=== PATIENT | female | born 1960 | race Caucasian/White ===

== ENCOUNTER → 2023-04-20 08:23 | Outpatient (CLI) | payer BC, SELFPAY ==
--- NOTE | ~2023-04-20 | MR_ITS ---
EXAMINATION: MR brain/brain stem wo/w con DATE: 04/20/2023 09:18 INDICATION: Concussion with loss of consciousness. TECHNIQUE: Magnetic resonance imaging (MRI) of the brain and brainstem was performed without and with 8 mL MultiHance intravenous contrast. COMPARISON: None. FINDINGS: There is no intracranial hemorrhage, acute infarction, or abnormal intracranial mass lesion . There are scattered areas of nonspecific increased T2-weighted signal intensity in the cerebral whi te matter. The ventricles are normal in size. The orbits are normal. The paranasal sinuses are clear. The mastoid air cells are normal. IMPRESSION: 1. Mild nonspecific cerebral white matter disease, which likely represents chronic small vessel ische christina disease. Reviewed, dictated and finalized at location A. IMPRESSION: 1. Mild nonspecific cerebral white matter disease, which likely represents lunchroom aide ute small vessel ischemic disease.
== END ==
PROVIDERS: PCP Family Medicine; Visit Provider Family Medicine
DX: S06.0X0A Concussion without loss of consciousness, initial encounter (principal); R90.82 White matter disease, unspecified
CPT/HCPCS: 70553; A9577

== ENCOUNTER 2024-12-17 15:18 | Outpatient (CLI) | payer MEDICARE, SELFPAY | END 2024-12-17 15:19 | disposition home or self-care (01) | LOC: MICIMG 15:27 | PROVIDERS: PCP Family Medicine; Visit Provider Family Medicine | DX: G81.94 Hemiplegia, unspecified affecting left nondominant side (principal); R90.82 White matter disease, unspecified | CPT/HCPCS: 70553; A9579 ==